=== PATIENT | female | born 1940 | race Caucasian/White ===

== ENCOUNTER → 2017-02-24 | Outpatient (CLI) | payer MEDICARE, OTHER ==
[~2017-02-24] MED LIST: CARB1TAB2 PO; DOCU-30 PO; MELO-190 PO; RASA1TAB PO; ZOLP-413 PO
== END | disposition home or self-care (01) ==
LOC: CFH 11:08
PROVIDERS: ATTEND Internal Medicine Cardiovascular Disease
DX: I08.3 Combined rheumatic disorders of mitral, aortic and tricuspid valves (principal); I27.2 Other secondary pulmonary hypertension; I10 Essential (primary) hypertension; G20 Parkinson's disease; Z85.3 Personal history of malignant neoplasm of breast
CPT/HCPCS: 93306